=== PATIENT | male | born 1990 | race African-American/Black ===

== ENCOUNTER 2016-06-17 15:48 | Emergency (ER) | payer BC, OTHER ==
--- NOTE | 2016-06-17 16:20 | UC ---
Ear Complaint HPI - HPI Summary HPI Summary: 25 yo male with both ears plugges x 1 month recently went swimming and now has mild right otalgia - History of Current Complaint Chief Complaint: UCEar Stated Complaint: BILATERAL EAR PAIN Time Seen by Provider: 06/17/16 16:10 Hx Obtained From: Patient Onset/Duration: Gradual Onset, Lasting Weeks Severity Initially: Mild Severity Currently: Mild Pain Intensity: 2 Pain Scale Used: 0-10 Numeric Associated Signs/Symptoms: Positive: Hearing Loss - Allergies/Home Medications Allergies/Adverse Reactions: Allergies Allergy/AdvReac Type Severity Reaction Status Date / Time No Known Allergies Allergy Verified 06/17/16 16:08 PMH/Surg Hx/FS Hx/Imm Hx Previously Healthy: Yes - Surgical History Surgical History: None - Family History Known Family History: Positive: Cardiac Disease, Hypertension, Other - high lipids - Social History Alcohol Use: Occasionally Substance Use Type: None Smoking Status (MU): Never Smoked Tobacco Review of Systems Constitutional: Negative Skin: Negative Eyes: Negative ENT: Ear Ache Respiratory: Negative Cardiovascular: Negative Gastrointestinal: Negative Genitourinary: Negative Motor: Negative Neurovascular: Negative Musculoskeletal: Negative Neurological: Negative Psychological: Negative All Other Systems Reviewed And Are Negative: Yes Physical Exam Triage Information Reviewed: Yes Appearance: Well-Appearing, No Pain Distress, Well-Nourished, Obese Vital Signs: Initial Vital Signs Temp 98.3 F 06/17/16 16:04 Pulse 84 06/17/16 16:04 Resp 16 06/17/16 16:04 BP 129/80 06/17/16 16:04 Pulse Ox 99 06/17/16 16:04 Vital Signs Reviewed: Yes Eyes: Positive: Conjunctiva Clear ENT: Positive: Pharynx normal, Pharyngeal erythema, Nasal congestion, Nasal drainage. Negative: Hearing grossly normal, TMs normal - unable to vis due to cerumen, Tonsillar swelling, Tonsillar exudate, Trismus, Muffled/hoarse voice Neck: Positive: Supple, Nontender Respiratory: Positive: Lungs clear, Normal breath sounds, No respiratory distress, No accessory muscle use Cardiovascular: Positive: RRR, No Murmur Musculoskeletal: Positive: ROM Intact, No Edema Neurological: Positive: Alert Skin Exam: Normal Re-Evaluation - Re-Evaluation First Eval Re-Evaluation Time: 16:40 Change: Improved - TMs ok after flush Ear Complaint Course/Dx - Differential Dx/Diagnosis Provider Diagnoses: bilateral cerumen impaction Discharge - Discharge Plan Condition: Stable Disposition: HOME Prescriptions: Neomyc/Polym/HC 1% OTIC SUSP* [Cortisporin Otic Susp 1%*] 4 drop BOTH EARS QID # 1 btl Patient Education Materials: Cerumen Impaction (ED) Referrals: [facility] [place] [facility] [Outside] Additional Instructions: recheck for new or worsening symptoms
[2016-06-17 17:02] VITALS: BP 129/80
== END 2016-06-17 16:55 | disposition home or self-care (01) ==
LOC: UCCORT 15:48
DX: H61.23 Impacted cerumen, bilateral (principal)
CPT/HCPCS: 99213; G0463

== ENCOUNTER 2016-10-17 15:59 | Emergency (ER) | payer BC ==
[2016-10-17 16:55] VITALS: BP 135/64
--- NOTE | 2016-10-17 18:22 | UC ---
Hand/Wrist HPI - HPI Summary HPI Summary: pain both side of left wrist, unknown injury - History Of Current Complaint Chief Complaint: UCUpperExtremity Stated Complaint: LEFT WRIST INJURY Time Seen by Provider: 10/17/16 17:45 Hx Obtained From: Patient ?: No Mechanism Of Injury: thinks he may have slept on it wrong Onset/Duration: Gradual Onset, Lasting Weeks - began around easter, Still Present Severity Initially: Moderate Severity Currently: Moderate Pain Intensity: 5 Pain Scale Used: 0-10 Numeric Character Of Pain: Aching, Throbbing Aggravating Factor(s): Movement Alleviating: Nothing Associated Signs And Symptoms: Positive: Negative Related History: Dominant Hand Right - Allergies/Home Medications Allergies/Adverse Reactions: Allergies Allergy/AdvReac Type Severity Reaction Status Date / Time No Known Allergies Allergy Verified 10/17/16 16:55 Home Medications: Home Medications Fexofenadine-Pseudoephedrine [Tamiko-D 24 Hour Allergy] 1 tab PO DAILY [History Confirmed 10/17/16] Fluticasone NASAL * [Flonase *] 2 spray BOTH NARES DAILY 10/17/16 [History Confirmed 10/17/16] PMH/Surg Hx/FS Hx/Imm Hx Previously Healthy: Yes - Surgical History Surgical History: None - Family History Known Family History: Positive: Cardiac Disease, Hypertension, Other - high lipids - Social History Occupation: Employed Full-time Lives: With Family Alcohol Use: Occasionally Substance Use Type: None Smoking Status (MU): Never Smoked Tobacco Review of Systems Constitutional: Negative Skin: Negative Eyes: Negative ENT: Negative Respiratory: Negative Cardiovascular: Negative Gastrointestinal: Negative Genitourinary: Negative Motor: Negative Neurovascular: Negative Musculoskeletal: Arthralgia - left distal wrist Neurological: Negative Psychological: Negative All Other Systems Reviewed And Are Negative: Yes Physical Exam Triage Information Reviewed: Yes Appearance: Well-Appearing, No Pain Distress, Obese Vital Signs: Initial Vital Signs Temp 98 F 10/17/16 16:51 Pulse 78 10/17/16 16:51 Resp 16 10/17/16 16:51 BP 135/64 10/17/16 16:51 Pulse Ox 99 10/17/16 16:51 Vital Signs Reviewed: Yes Eye Exam: Normal Eyes: Positive: Conjunctiva Clear ENT Exam: Normal ENT: Positive: Normal ENT inspection, Hearing grossly normal. Negative: Nasal congestion, Nasal drainage, Trismus, Muffled/hoarse voice Dental Exam: Normal Neck exam: Normal Neck: Positive: Supple, Nontender, No Lymphadenopathy Respiratory Exam: Normal Respiratory: Positive: Chest non-tender, Lungs clear, Normal breath sounds, No respiratory distress, No accessory muscle use Cardiovascular Exam: Normal Cardiovascular: Positive: RRR, No Murmur, Pulses Normal, Brisk Capillary Refill Musculoskeletal Exam: Normal Musculoskeletal: Positive: Strength Intact, ROM Intact, No Edema Neurological Exam: Normal Neurological: Positive: Alert, Muscle Tone Normal Psychological Exam: Normal Skin Exam: Normal Diagnostics - Radiology No standard instances Xray Interpretation: No Acute Changes Radiology Interpretation Completed By: Radiologist Re-Evaluation - Re-Evaluation First Eval Change: Improved - mario wrap applied by nursing---n/m/c intact Hand/Wrist Course/Dx - Course Course Of Treatment: rice, mario, follow with ortho, ibuprofen - Differential Dx/Diagnosis Differential Diagnosis/HQI/PQRI: Carpal Tunnel Syndrome, Contusion, Fracture, Tendonitis Provider Diagnoses: Left wrist tendonitis Discharge - Discharge Plan Condition: Stable Disposition: HOME Patient Education Materials: Ibuprofen (By mouth), Wrist Injury (ED), Tendinitis (ED), RICE Therapy (ED) Referrals: Michael Moreno MD [Medical Doctor] - If Needed Non Staff,Doctor [Primary Care Provider] -
--- NOTE | 2016-10-17 19:01 | RAD ---
Indication: Left wrist pain 3 views of the wrist demonstrates no fracture. No other bone or joint abnormality is identified. IMPRESSION: NO FRACTURE OF THE WRIST IS NOTED.
== END 2016-10-17 19:12 | disposition home or self-care (01) ==
LOC: UCCORT 15:59
DX: M65.842 Other synovitis and tenosynovitis, left hand (principal); E66.9 Obesity, unspecified
CPT/HCPCS: 99212; G0463

== ENCOUNTER 2016-11-04 09:30 | Emergency (ER) | payer BC ==
[2016-11-04 10:02] VITALS: BP 114/90
[2016-11-04] MEDS ORDERED: Lidocaine 2% W/EPI 1:100,000* 20 ML MDV INJ ONE (10:46)
[2016-11-04] MEDS ORDERED: Silver Nitrate/Potassium Nitr* 1 EA STICK TOPICAL ONE (10:48)
--- NOTE | 2016-11-04 11:19 | UC ---
Skin Complaint HPI - HPI Summary HPI Summary: lesion on right foot x 1 month, getting bigger , bleeding , tender no known injury - History of Current Complaint Chief Complaint: UCSkin Time Seen by Provider: 11/04/16 10:11 Stated Complaint: RIGHT FOOT COMPLAINT Hx Obtained From: Patient Onset/Duration: Gradual Onset, Lasting Weeks - 4, Still Present Timing: Constant Onset Severity: Moderate Current Severity: Moderate Location: Foot (Right) Character: Swelling, Pain, Redness, Raised, Painful Aggravating: Touch Alleviating: Nothing Associated Signs & Symptoms: Positive: Negative - Allergy/Home Medications Allergies/Adverse Reactions: Allergies Allergy/AdvReac Type Severity Reaction Status Date / Time No Known Allergies Allergy Verified 11/04/16 09:58 Home Medications: Home Medications NK [No Home Medications Reported] 11/04/16 [History Confirmed 11/04/16] Review of Systems Constitutional: Negative Skin: Negative Eyes: Negative ENT: Negative Respiratory: Negative Cardiovascular: Negative Gastrointestinal: Negative Genitourinary: Negative Motor: Negative Neurovascular: Negative Musculoskeletal: Negative Neurological: Negative Psychological: Negative All Other Systems Reviewed And Are Negative: Yes PMH/Surg Hx/FS Hx/Imm Hx Previously Healthy: Yes - Surgical History Surgical History: None - Family History Known Family History: Positive: Cardiac Disease, Hypertension, Other - high lipids - Social History Alcohol Use: Occasionally Substance Use Type: None Smoking Status (MU): Never Smoked Tobacco Physical Exam Triage Information Reviewed: Yes Appearance: Well-Appearing, No Pain Distress, Obese Vital Signs: Initial Vital Signs Temp 97.5 F 11/04/16 09:52 Pulse 52 11/04/16 09:52 Resp 18 11/04/16 09:52 BP 114/90 11/04/16 09:52 Pulse Ox 99 11/04/16 09:52 Eyes: Positive: Conjunctiva Clear ENT: Positive: Normal ENT inspection, Hearing grossly normal, Pharynx normal Neck: Positive: Supple, Nontender, No Lymphadenopathy Respiratory: Positive: Chest non-tender, Lungs clear, Normal breath sounds Cardiovascular: Positive: RRR, No Murmur, Pulses Normal Skin: Positive: Other - right foot lesion : + pyogenic granuloma , + tender, erythem, bleeding Course/Dx - Diagnoses Provider Diagnoses: pyogenic granuloma right foot Procedures - Procedure Summary Procedure Summary: excision of pyogenic granuloma right foot the area was prepped with betadine anesthesia : 2% lidocaine with epi x 4 cc using a # 11 blade the lesion was remove , bleeding was stopped using silver nitrate and pressure dressing Discharge - Discharge Plan Condition: Stable Disposition: HOME Patient Education Materials: Acute Wound Care (ED) Referrals: No Primary Care Phys,NOPCP [Primary Care Provider] - 7 Days Additional Instructions: pyogenic granuloma right foot apply pressure if bleeding keeo the wound clean , change the dressing daily ,
== END 2016-11-04 11:19 | disposition home or self-care (01) ==
LOC: UCCORT 09:30
DX: L92.8 Other granulomatous disorders of the skin and subcutaneous tissue (principal)
CPT/HCPCS: 99211; A9270-GY; G0463

== ENCOUNTER 2016-12-03 11:27 | Emergency (ER) | payer BC ==
[2016-12-03 11:38] VITALS: BP 118/72
--- NOTE | 2016-12-03 12:19 | UC ---
Cardiac HPI - HPI Summary HPI Summary: 26 yo male with right sided CP x 5 days worse when supine Recent trip to [place] and back 2 days ago as he was driving back his pain was significant and he felt short of breath he had to loop puller twice because he felt faint no n/v/d - History of Current Complaint Chief Complaint: UCChestPain Stated Complaint: CHEST PAIN Time Seen by Provider: 12/03/16 12:06 Hx Obtained From: Patient Onset/Duration: Gradual Onset, Lasting Days Initial Severity: Mild Current Severity: Mild Pain Intensity: 3 Chest Pain Location: Right Anterior Character: Sharp/Stabbing Aggravating: Position Alleviating: Spontaneous Resolution Associated Signs & Symptoms: Positive: Chest Pain, Weakness, SOB - Allergy/Home Medications Allergies/Adverse Reactions: Allergies Allergy/AdvReac Type Severity Reaction Status Date / Time No Known Allergies Allergy Verified 12/03/16 11:38 PMH/Surg Hx/FS Hx/Imm Hx Previously Healthy: Yes - Surgical History Surgical History: None - Family History Known Family History: Positive: Cardiac Disease, Hypertension, Other - high lipids - Social History Alcohol Use: Weekly Substance Use Type: None Smoking Status (MU): Never Smoked Tobacco Review of Systems Constitutional: Negative Skin: Negative Eyes: Negative ENT: Negative Respiratory: Shortness Of Breath Cardiovascular: Chest Pain Gastrointestinal: Negative Genitourinary: Negative Motor: Negative Neurovascular: Negative Musculoskeletal: Negative Neurological: Weakness Psychological: Negative All Other Systems Reviewed And Are Negative: Yes Physical Exam Triage Information Reviewed: Yes Appearance: Well-Appearing, No Pain Distress, Obese Vital Signs: Initial Vital Signs Temp 97.3 F 12/03/16 11:33 Pulse 83 12/03/16 11:33 Resp 14 12/03/16 11:33 BP 118/72 12/03/16 11:33 Pulse Ox 97 12/03/16 11:33 Vital Signs Reviewed: Yes Eyes: Positive: Conjunctiva Clear ENT: Positive: Hearing grossly normal. Negative: Nasal congestion, Nasal drainage, Tonsillar exudate, Trismus, Muffled/hoarse voice Neck: Positive: Supple, Nontender Respiratory: Positive: Chest non-tender, Lungs clear, Normal breath sounds, No respiratory distress Cardiovascular: Positive: RRR, No Murmur Musculoskeletal: Positive: ROM Intact, No Edema Neurological: Positive: Alert Psychological Exam: Normal Psychological: Positive: Normal Response To Family Skin Exam: Normal Diagnostics - EKG Cardiac Rate: NL Cardiac Rhythm: Sinus: Normal Ectopy: None ST Segment: Non-Specific - Assessment/Plan Course Of Treatment: d/w Samira Ashraf NP. to [facility] ED - Clinical Impression Provider Diagnoses: chest pain of uncertain cause Discharge - Discharge Plan Condition: Guarded Disposition: AGAINST MEDICAL ADVICE
--- NOTE | 2016-12-03 12:45 | RAD ---
INDICATION: 2 days of right chest pain COMPARISON: None TECHNIQUE: PA and lateral views of the chest were obtained. FINDINGS: The heart and mediastinum are normal in size and contour. The lungs are grossly clear. There is no evidence of large pleural effusion. Visualized bones are normal for the patient's age. There is no radiographic evidence of free air beneath the diaphragm IMPRESSION: No radiographic evidence of acute cardiopulmonary disease.
== END 2016-12-03 12:55 | disposition left against medical advice (07) ==
LOC: UCCORT 11:27
DX: R07.89 Other chest pain (principal); R06.02 Shortness of breath; E66.9 Obesity, unspecified
CPT/HCPCS: 71020; 93005; 99212; G0463